=== PATIENT | female | born 1955 | race Caucasian/White ===

== ENCOUNTER 2016-10-28 07:16 | Emergency (ER) | payer OTHER, MEDICAID ==
[2016-10-28] MEDS ORDERED: TDaP 0.5 ML VIAL IM.VACC ONE (07:52)
== END 2016-10-28 08:10 | disposition home or self-care (01) ==
LOC: ER 07:16
DX: S61.211A Laceration without foreign body of left index finger without damage to nail, initial encounter (principal); W26.0XXA Contact with knife, initial encounter; Y92.511 Restaurant or cafe as the place of occurrence of the external cause; Z23 Encounter for immunization; F17.210 Nicotine dependence, cigarettes, uncomplicated
CPT/HCPCS: 90471